=== PATIENT | female | born 1975 | race Two or more races ===

== ENCOUNTER 2021-11-03 08:09 | Outpatient (REF) | payer OTHER, SELFPAY ==
--- NOTE | ~2021-11-03 | US_ITS ---
EXAMINATION: US ABDOMEN COMPLETE CLINICAL INFORMATION: Lower abdominal pain. COMPARISON: None. TECHNIQUE: Real-time imaging of the abdominal viscera. FINDINGS: PANCREAS: Most of the pancreas is obscured by overlying gas. ABDOMINAL AORTA: The proximal, mid, and distal segments are normal in caliber. INFERIOR VENA CAVA: Visualized portions are normal. LIVER: Normal. The liver is normal in size. The liver contour is normal. Parenchymal echogenicity is normal. No focal hepatic lesion. There is no intrahepatic biliary duct dilatation seen. GALLBLADDER: Surgically absent. COMMON BILE DUCT: Normal in caliber measuring 0.6 cm in diameter. RIGHT KIDNEY: There is a echogenic area in the lower pole measuring 0.6 x 0.4 x 0.4 cm suggestive of angiomyolipoma. No hydronephrosis. No renal calculi or focal parenchymal lesions. The kidney measures 11.3 cm in maximum dimension. LEFT KIDNEY: There is mild pelvic fullness but no hydroureteronephrosis. No renal calculi or focal parenchymal lesions. The kidney measures 12.0 cm in maximum dimension. SPLEEN: Normal. The spleen measures 12.3 cm in maximum dimension. FREE FLUID: None. 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 Mild pelvic fullness left kidney. Pancreas is not visualized. The rest of the abdominal ultrasound is unremarkable.
== END 2021-11-03 08:10 | disposition home or self-care (01) ==
LOC: HO.US 08:09
PROVIDERS: Visit Provider Internal Medicine
DX: R10.30 Lower abdominal pain, unspecified (principal)
CPT/HCPCS: 76700

== ENCOUNTER 2021-11-10 14:48 | Outpatient (REF) | payer OTHER, SELFPAY ==
--- NOTE | ~2021-11-10 | MM_ITS ---
EXAMINATION: BONE DENSITOMETRY CLINICAL INDICATION: Early menopause, secondary osteoporosis. COMPARISON: None (current study represents initial baseline exam). TECHNIQUE: Using a [employer] DXA System (software version: 13.1) manufactured by [employer], dual-energy x-ray absorptiometry was performed of the lumbar spine and left hip. The images are of good technical quality. Summary results are attached. FINDINGS: AP SPINE L1-L4: BMD 1.376 g/cm2, Z-score 0.5, T-score 1.6, normal. LEFT FEMUR, NECK: BMD 0.977 g/cm2, Z-score -0.6, T-score -0.4, normal. LEFT FEMUR, TOTAL: BMD 0.977 g/cm2, Z-score -0.8, T-score -0.2, normal. IDENTIFIED RISK FACTORS: Early menopause, secondary osteoporosis. HISTORY OF FRACTURE: None listed. MEDICATIONS: None listed. MM/XR DEXA axial skeleton IMPRESSION: 1. DIAGNOSIS: Normal bone density based on the lowest T-score value of -0.4 in the femoral neck applying World Health Organization criteria. 2. 10-YEAR FRACTURE RISK PREDICTION, FRAX: According to the guidelines, FRAX calculation should only be performed on patients in the osteopenia bone density category. Therefore, FRAX was not performed on this patient. 3. Treatment Recommendations: NOF guidelines recommend consideration for treatment in postmenopausal women and men age 50 and older presenting with the following: -A hip or vertebral (clinical or morphometric) fracture. -T-score less than or equal to -2.5 at the femoral neck or spine after appropriate evaluation to exclude secondary causes. -Low bone mass at the hip or spine and a 10-year fracture probability by FRAX of greater than or equal to 3% for hip fracture or greater than or equal to 20% for major osteoporotic fracture based on the [place] adapted WHO algorithm. 4. Other Recommendations: All treatment decisions require clinical judgment and consideration of individual patient factors, including patient preferences, comorbidities, previous drug use, risk factors not captured in the FRAX model (e.g. frailty, falls, vitamin D deficiency, increased bone turnover, interval significant decline in bone density) and possible under or overestimation of fracture risk by FRAX. FUTURE SCAN RECOMMENDATION: People with diagnosed cases of osteoporosis or at high risk for fracture should have regular bone mineral density tests. For patients eligible for Medicare, routine testing is allowed once every 2 years. The testing frequency can be increased to one year for patients who have rapidly progressing disease, those who are receiving or discontinuing medical therapy to restore bone mass, or have additional risk factors.
== END 2021-11-10 14:49 | disposition home or self-care (01) ==
LOC: HO.MAMMO 14:48
PROVIDERS: PCP Internal Medicine; Visit Provider Internal Medicine
DX: Z13.820 Encounter for screening for osteoporosis (principal); E28.319 Asymptomatic premature menopause; Z78.0 Asymptomatic menopausal state
CPT/HCPCS: 77080